=== PATIENT | male | born 1955 | race Hispanic/Latino ===

== ENCOUNTER 2021-08-28 13:01 | Emergency (ER) | payer MEDICARE ==
[~2021-08-28] VITALS: Ht 160 cm; Wt 79.4 kg
[2021-08-28 13:19] VITALS: BP 151/74
[2021-08-28] MEDS ORDERED: ACET-2247 PO (13:26)
[2021-08-28] MEDS ORDERED: NEOMYCIN/POLYMYXIN/HC OTIC SUSP 10ML BOTTLE ONE (13:26)
[2021-08-28] MEDS ORDERED: AMOX1TAB16 PO (13:26)
[2021-08-28] MEDS ORDERED: CEFTRIAXONE 1G VIAL ONE (13:27)
[2021-08-28] MEDS ORDERED: ACETAMINOPHEN 500 MG TABLET ONE (13:27)
[2021-08-28] MEDS ORDERED: CEFTRIAXONE 1G VIAL IM ONE (13:30)
[2021-08-28] MEDS ORDERED: ACETAMINOPHEN 500 MG TABLET PO ONE (13:30)
[2021-08-28] MEDS ORDERED: NEOMYCIN/POLYMYXIN/HC OTIC SUSP 10ML BOTTLE AD SCH (14:00)
== END 2021-08-28 13:51 | disposition home or self-care (01) ==
LOC: EDH 13:01
DX: T16.1XXA Foreign body in right ear, initial encounter (principal); H66.91 Otitis media, unspecified, right ear; E11.9 Type 2 diabetes mellitus without complications; I10 Essential (primary) hypertension; X58.XXXA Exposure to other specified factors, initial encounter; Y93.9 Activity, unspecified; Y92.89 Other specified places as the place of occurrence of the external cause; Y99.8 Other external cause status
CPT/HCPCS: 96372; 99284; J0696